=== PATIENT | female | born 1970 | race Caucasian/White ===

== ENCOUNTER 2017-12-27 03:55 | Emergency (ER) | payer BC ==
--- NOTE | 2017-12-27 03:56 | EDPHY ---
H & P HPI/ROS: HPI CHIEF COMPLAINT: The soft tissue swelling and redness concern for infection. HISTORY OF PRESENT ILLNESS: This patient very pleasant 47-year-old female she is otherwise healthy she does take spironolactone for acne of her face, she presents emergency room with erythema and swelling to her nose been present for the past 4 days progressively getting worse. She is due to get on a flight today at 2:00 p.m. To go to [place]. She denies any fever but she is concerned about the infection of her nose. She states initially 4 days ago she had some redness and a lesion at the tip of her nose. No other lesions on her face. No history of herpes or zoster. She squeezed it. And then became more inflamed and red. No fever. Past Medical History: Acne. Depression medication Past Surgical History: Denies recent surgery Social History: Denies drugs alcohol tobacco products. Family History: Noncontributory ROS REVIEW OF SYSTEMS: A comprehensive 10 point review of systems is otherwise negative aside from elements mentioned in the history of present illness. Exam Constitutional appears well nontoxic triage nursing summary reviewed, vital signs reviewed, awake/alert. Eyes normal conjunctivae and sclera, EOMI, PERRLA. HENT nose: The tip of the nose is erythematous and swollen. Nasal passages are intact. No midface swelling. No septal or preseptal cellulitis or evidence of infection and no edema. However the nose appears to be infected cellulitis present. normal inspection, atraumatic, moist mucus membranes, no epistaxis, neck supple/ no meningismus, no raccoon eyes. Respiratory clear to auscultation bilaterally, normal breath sounds, no respiratory distress, no wheezing. Cardiovascular rate normal, regular rhythm, no murmur, no edema, distal pulses normal. Gastrointestinal soft, non-tender, no rebound, no guarding, normal bowel sounds, no distension, no pulsatile mass. Genitourinary no CVA tenderness. Musculoskeletal no midline vertebral tenderness, full range of motion, no calf swelling, no tenderness of extremities, no meningismus, good pulses, neurovascularly intact. Skin pink, warm, & dry, no rash, skin atraumatic. Neurologic awake, alert and oriented x 3, AAOx3, moves all 4 extremities equally, motor intact, sensory intact, CN II-XII intact, normal cerebellar, normal vision, normal speech. Psychiatric normal mood/affect. Heme/Lymph/Immune no lymphadenopathy. Differential Diagnosis: Includes but is not limited to in a particular order facial cellulitis, nasal cellulitis, zoster Medical Decision Making: Plan for this patient Bactrim and Keflex 1st dose given in emergency room. Take-home packs provided for today. And prescriptions provided. Recommend warm compresses 5 times a day for 20 min. Return precautions discussed. She understands return emergency room if develops worsening redness, pain, fever she is due to go to [place] today. When she arrives [place] if it is worse eat medical attention air. Source: Patient - Medical/Surgical History Other PMH: anxiety - Social History Smoking Status: Never smoked Allergies/Adverse Reactions: No Known Allergies Allergy (Unverified 11/02/14 14:04) Home Medications: Medication Instructions Recorded PARoxetine HCL [Paxil 10mg (RX)] 10 mg PO DAILY 11/02/14 Cephalexin [Keflex] 500 mg PO Q6H #28 cap 12/27/17 Sulfamethox/Tmp 800/160 mg 1 tab PO BID@1000,2200 #14 tab 12/27/17 [Bactrim Ds] Departure - Departure Disposition: Home, Routine, Self-Care Clinical Impression: Facial cellulitis Condition: Good Instructions: Cellulitis (ED) Additional Instructions: 1. Warm compresses 5 times a day for 20 min. 2. Antibiotics as prescribed. 3. If worsening swelling, pain, redness, fever return to the emergency room or seek medical attention. Referrals: Coreen Ferguson MD [Primary Care Provider] - As per Instructions Prescriptions: Cephalexin [Keflex] 500 mg PO Q6H #28 cap Sulfamethox/Tmp 800/160 mg [Bactrim Ds] 1 tab PO BID@1000,2200 #14 tab
[2017-12-27] MEDS ORDERED: SULFAMET/TMP DS PREPACK#2 BTL TAKEHOME ONE (04:05)
[2017-12-27] MEDS ORDERED: SULFAMETHOX/TMP 800/160 MG 1 TAB PO ONE (04:05)
[2017-12-27] MEDS ORDERED: CEPHALEXIN 500MG PREPACK#4 BTL TAKEHOME ONE (04:05)
[2017-12-27] MEDS ORDERED: CEPHALEXIN 500 MG CAP PO ONE (04:05)
[2017-12-27 04:07] VITALS: BP 130/90; PULSE 85; RESP 16; TEMP 97.9; O2SAT 98
[2017-12-27] MEDS ORDERED: MUPIROCIN 2% 22 GM OINT TP SCH (09:00)
== END 2017-12-27 04:29 | disposition home or self-care (01) ==
DX: L03.211 Cellulitis of face (principal)

== ENCOUNTER → 2018-10-06 | Outpatient (CLI) | payer BC | LOC: FIMAGING 11:36 | PROVIDERS: ATTEND Obstetrics & Gynecology | DX: Z12.31 Encounter for screening mammogram for malignant neoplasm of breast (principal) ==